=== PATIENT | female | born 1945 | race Caucasian/White ===

== ENCOUNTER 2020-06-07 09:00 | Emergency (ER) | payer BC, OTHER ==
[2020-06-07 09:58] LABS: Absolute Lymphocytes (CBC) 1.4 K/uL (0.7-4.9); Basophils % 0.8 % (0-1.3); Hematocrit 34.1 % (36.0-45.0); Lymphocytes % 26.7 % (15.3-44.8); MPV 9.2 fL (7.6-11.3); RBC Red Blood Cell Count 3.65 M/uL (3.86-4.86)
[2020-06-07 10:20] LABS: ALT/SGPT 8 U/L (12-78); AST/SGOT 14 U/L (15-37); Albumin 3.1 g/dL (3.4-5.0); Alkaline Phosphatase 99 U/L (45-117); BUN Blood Urea Nitrogen 21 mg/dL (7-18); Bicarbonate 31 mmol/L (21-32); Bilirubin Total 0.5 mg/dL (0.2-1.0); Glucose Level 85 mg/dL (74-106); Potassium 3.8 mmol/L (3.5-5.1); Protein, Total 8.1 g/dL (6.4-8.2); Sodium Level 141 mmol/L (136-145); Troponin (Emerg Dept Use Only) < 0.02 ng/mL (0.0-0.045)
[2020-06-07 10:56] LABS: Urine Amorphous Sediment 1+ /HPF (NONE SEEN); Urine Bacteria <20 /HPF (<20); Urine Culture Reflex Order REFLEXED; Urine RBC <5 /HPF (NONE SEEN)
[2020-06-07 11:00] LABS: Urine Blood 1+ (NEG); Urine Glucose NEGATIVE (NEG); Urine Protein NEGATIVE (NEG)
--- NOTE | 2020-06-07 11:23 | ER ---
Nurse's Notes [facility] Name: Staci Cote Age: 75 yrs Sex: Female : 1945 Arrival Date: 06/07/2020 Time: 09:02 Bed 20 Private MD: Diagnosis: Confusion, resolved. ;Urinary frequency Presentation: 06/07 09:03 Chief complaint: EMS states: daughter called EMS for confusion that was there yesterday em but today pt is A\T\O 4, pt reports blood in urine that has resolved, pt denies pain. Coronavirus screen: Client denies travel out of the [place] in the last 14 days. Ebola Screen: Patient negative for fever greater than or equal to 101.5 degrees Fahrenheit, and additional compatible Ebola Virus Disease symptoms Patient denies exposure to infectious person. Patient denies travel to an Ebola-affected area in the 21 days before illness onset. No symptoms or risks identified at this time. Initial Sepsis Screen: Does the patient meet any 2 criteria? No. Patient's initial sepsis screen is negative. Does the patient have a suspected source of infection? No. Patient's initial sepsis screen is negative. Risk Assessment: Do you want to hurt yourself or someone else? Patient reports no desire to harm self or others. Onset of symptoms was June 07, 2020. 09:03 Method Of Arrival: EMS: [facility] em 09:03 Acuity: JESSI 3 em Historical: - Allergies: 09:05 No Known Allergies; em - PMHx: 09:05 Hypertension; Hyperlipidemia; em - Immunization history:: Adult Immunizations up to date. - Social history:: Smoking status: Patient denies any tobacco usage or history of. Screenin:06 Abuse screen: Denies threats or abuse. Nutritional screening: No deficits noted. em Tuberculosis screening: No symptoms or risk factors identified. Fall Risk None identified. Assessment: 09:03 General: Appears in no apparent distress. comfortable, Behavior is calm, cooperative, em appropriate for age, Denies fever. Pain: Denies pain. Neuro: Level of Consciousness is awake, alert, obeys commands, Oriented to person, place, time, situation, Appropriate for age. Cardiovascular: Capillary refill < 3 seconds Patient's skin is warm and dry. Respiratory: Airway is patent Respiratory effort is even, unlabored. GI: Abdomen is obese. : Reports hematuria for one day then clearing up. Derm: Skin is intact, is healthy with good turgor, Skin is pink, warm \T\ dry. Musculoskeletal: Capillary refill < 3 seconds, Range of motion: intact in all extremities. 10:00 Reassessment: Patient appears in no apparent distress at this time. Patient and/or em family updated on plan of care and expected duration. Pain level reassessed. Patient is alert, oriented x 3, equal unlabored respirations, skin warm/dry/pink. 11:00 Reassessment: Patient appears in no apparent distress at this time. Patient and/or em family updated on plan of care and expected duration. Pain level reassessed. Patient is alert, oriented x 3, equal unlabored respirations, skin warm/dry/pink. 11:31 Reassessment: Dr. Saldana at bedside. em 11:33 Reassessment: pending completion of CXR, will be discharged afterwards. em 12:05 Reassessment: COVID-19 sent to outside lab. sv Vital Signs: 09:03 BP 174 / 75; Pulse 61; Resp 18; Temp 97.7(O); Pulse Ox 97% on R/A; Weight 136.08 kg em (R); Height 5 ft. 4 in. (162.56 cm); Pain 0/10; 10:00 BP 165 / 74; Pulse 57; Resp 18; Pulse Ox 97% on R/A; em 11:30 BP 163 / 86; Pulse 55; Resp 16; Pulse Ox 96% on R/A; em 13:00 BP 145 / 92; Pulse 70; Resp 18; Pulse Ox 99% on R/A; em 09:03 Body Mass Index 51.49 (136.08 kg, 162.56 cm) em ED Course: 09:02 Patient arrived in ED. em 09:03 Lencho Saldana MD is Attending Physician. ps1 09:05 Triage completed. em 09:05 Arm band placed on. em 09:06 Patient has correct armband on for positive identification. Placed in gown. Bed in low em position. Pulse ox on. NIBP on. 09:11 Morgan Richards RN is Primary Nurse. em 09:35 Speci-cath kit inserted, using sterile technique, 16 Fr., specimen obtained. inserted em by SHEILA Alicia returned clear yellow urine. Patient tolerated well. 09:52 Initial lab(s) drawn, by me, sent to lab. Inserted saline lock: 20 gauge in right em antecubital area, using aseptic technique. Blood collected. 12:11 CXR XRAY In Process Unspecified. EDMS 13:35 No provider procedures requiring assistance completed. IV discontinued, intact, sv bleeding controlled, No redness/swelling at site. Pressure dressing applied. Administered Medications: No medications were administered Outcome: 11:22 Discharge ordered by . ps1 13:36 Discharged to home via wheelchair, with family. sv 13:36 Condition: stable 13:36 Discharge instructions given to patient, Instructed on discharge instructions, follow up and referral plans. medication usage, Demonstrated understanding of instructions, follow-up care, medications, Prescriptions given X 1. 13:36 Patient left the ED. sv Addendum: 06/10/2020 08:25 Addendum: Culture Results: Positive urine culture. No further action required. Bacteria h b sensitive to prescribed antibiotic. 16:34 Addendum: COVID-19 Result: Negative result given to RN to notify pt. Notified pt of h b negative COVID 19 swab results. Pt advised that even with a negative test result they should remain in isolation until symptom free for 3 days without medication. Pt also advised to return to the ED for worsening symptoms. Signatures: Dispatcher [employer] Suma Lviingston RN RN sv Munoz, Edgar, RN RN em Baxter, Heather, RN RN hb Singer, Phillip, MD MD ps1
--- NOTE | 2020-06-07 11:23 | EDPHYS ---
Physician Documentation [facility] Name: Staci Cote Age: 75 yrs Sex: Female : 1945 Arrival Date: 06/07/2020 Time: 09:02 Bed 20 Private MD: ED Physician Lencho Saldana HPI: 06/07 09:04 This 75 yrs old Female presents to ER via EMS with complaints of Urinary ps1 Problem. 09:04 Patient had symptoms of cloudy urine. EMS states that she was reportedly confused ps1 yesterday. Alert and oriented today. No symptoms at this time. No new complaints. . Historical: - Allergies: 09:05 No Known Allergies; em - PMHx: 09:05 Hypertension; Hyperlipidemia; em - Immunization history:: Adult Immunizations up to date. - Social history:: Smoking status: Patient denies any tobacco usage or history of. ROS: 09:04 Constitutional: Negative for fever, chills, and weight loss, Eyes: Negative for injury, ps1 pain, redness, and discharge, Cardiovascular: Negative for chest pain, palpitations, and edema, Respiratory: Negative for shortness of breath, cough, wheezing, and pleuritic chest pain, Abdomen/GI: Negative for abdominal pain, nausea, vomiting, diarrhea, and constipation, MS/Extremity: Negative for injury and deformity. 09:04 : Positive for urinary symptoms. Exam: 09:04 Constitutional: This is a well developed, well nourished patient who is awake, alert, ps1 and in no acute distress. Head/Face: Normocephalic, atraumatic. Eyes: Pupils equal round and reactive to light, extra-ocular motions intact. Lids and lashes normal. Conjunctiva and sclera are non-icteric and not injected. Chest/axilla: Normal chest wall appearance and motion. Nontender with no deformity. No lesions are appreciated. Cardiovascular: Regular rate and rhythm. No gallops, murmurs, or rubs. Normal PMI, no JVD. No pulse deficits. Respiratory: Lungs have equal breath sounds bilaterally, clear to auscultation and percussion. No rales, rhonchi or wheezes noted. No increased work of breathing, no retractions or nasal flaring. Abdomen/GI: Soft, non-tender, with normal bowel sounds. No distension or tympany. No guarding or rebound. No evidence of tenderness throughout. Skin: Warm, dry with normal turgor. Normal color with no rashes, no lesions, and no evidence of cellulitis. MS/ Extremity: Pulses equal, no cyanosis. Neurovascular intact. Full, normal range of motion. Neuro: Awake and alert, GCS 15, oriented to person, place, time, and situation. Cranial nerves II-XII grossly intact. Sensory grossly intact. Vital Signs: 09:03 BP 174 / 75; Pulse 61; Resp 18; Temp 97.7(O); Pulse Ox 97% on R/A; Weight 136.08 kg em (R); Height 5 ft. 4 in. (162.56 cm); Pain 0/10; 10:00 BP 165 / 74; Pulse 57; Resp 18; Pulse Ox 97% on R/A; em 11:30 BP 163 / 86; Pulse 55; Resp 16; Pulse Ox 96% on R/A; em 13:00 BP 145 / 92; Pulse 70; Resp 18; Pulse Ox 99% on R/A; em 09:03 Body Mass Index 51.49 (136.08 kg, 162.56 cm) em MDM: 09:46 Patient medically screened. ps1 11:22 Differential Diagnosis altered mental status, sepsis, flu, COVID, UTI, Metabolic ps1 derangements, Dehydration, and others. Data reviewed: vital signs, nurses notes, lab test result(s), and as a result, I will discharge patient. Counseling: I had a detailed discussion with the patient and/or guardian regarding: the historical points, exam findings, and any diagnostic results supporting the discharge/admit diagnosis, lab results, the need for outpatient follow up, to return to the emergency department if symptoms worsen or persist or if there are any questions or concerns that arise at home. 06/07 09:10 Order name: CBC with Diff; Complete Time: 10:02 ps1 06/07 09:10 Order name: CMP; Complete Time: 10:24 ps1 06/07 09:10 Order name: Troponin (emerg Dept Use Only); Complete Time: 10:24 ps1 06/07 09:45 Order name: Urine Microscopic Only; Complete Time: 10:58 em 06/07 09:47 Order name: Urine Dipstick--Ancillary (enter results); Complete Time: 11:21 eb 06/07 10:25 Order name: COVID-19 ps1 06/07 09:10 Order name: Urine Dipstick-Ancillary (obtain specimen); Complete Time: 09:39 ps1 06/07 09:10 Order name: EKG - Nurse/Tech; Complete Time: 09:39 ps1 06/07 10:58 Order name: Urine Culture EDHI 06/07 11:32 Order name: CXR XRAY; Complete Time: 13:11 ps1 Administered Medications: No medications were administered Disposition: 06/07/20 11:22 Discharged to Home. Impression: Confusion, resolved. , Urinary frequency. - Condition is Stable. - Discharge Instructions: Confusion. - Prescriptions for Levaquin 500 mg Oral Tablet - take 1 tablet by ORAL route once daily for 7 days; 7 tablet. - Medication Reconciliation Form, Thank You Letter, Antibiotic Education, Prescription Opioid Use form. - Follow up: Private Physician; When: 1 - 2 days; Reason: Further diagnostic work-up, Continuance of care. Follow up: Emergency Department; When: As needed; Reason: Fever > 102 F, Worsening of condition. - Problem is new. - Symptoms have improved. Signatures: Dispatcher [employer] Suma Alvarado RN RN Morgan Fox RN RN Lencho Ospina MD MD ps1 Corrections: (The following items were deleted from the chart) 13:36 11:22 06/07/2020 11:22 Discharged to Home. Impression: Confusion, resolved. ; Urinary sv frequency. Condition is Stable. Forms are Medication Reconciliation Form, Thank You Letter, Antibiotic Education, Prescription Opioid Use. Follow up: Private Physician; When: 1 - 2 days; Reason: Further diagnostic work-up, Continuance of care. Follow up: Emergency Department; When: As needed; Reason: Fever > 102 F, Worsening of condition. Problem is new. Symptoms have improved. ps1
--- NOTE | 2020-06-07 12:56 | RAD REPORT ---
EXAM DESCRIPTION: RAD - Chest Single View - 06/07/2020 12:10 pm CLINICAL HISTORY: confusion, altered mental status, shortness of breath COMPARISON: None TECHNIQUE: AP portable chest image was obtained 06/07/2020 12:10 pm . FINDINGS: Detail is limited by low lung volumes and large body habitus. No peripheral mass or consol idation. Cardiomegaly is present with vascular engorgement. Perihilar interstitial pattern is more pr ominent than peripheral markings. Right hemidiaphragm elevation present. No measurable pleural effusi on and no pneumothorax. No acute bony abnormality seen. No acute aortic findings suspected. IMPRESSION: Limited portable study shows evidence for mild failure/volume overload. A focal pneumonia or infiltrate is not identifiable.
[2020-06-07 13:46] VITALS: TEMP 97.7
[2020-06-07 13:49] VITALS: BP 163/86; O2SAT 96
--- NOTE | 2020-06-08 07:43 | EKG ---
Test Date: 2020-06-07 Test Time: 09:20:40 [employer]: HOLLY MEASUREMENT RESULTS: Intervals: Rate: 69 ND: 158 QRSD: 86 QT: 430 QTc: 460 [place]: P: 69 ND: 158 QRS: 34 T: 47 INTERPRETIVE STATEMENTS: Sinus rhythm with marked sinus arrhythmia Otherwise normal ECG Compared to ECG 09/15/2003 13:36:00 No significant changes Electronically Signed On 06-08-20 07:42:53 CDT by Marcial Medina
== END 2020-06-07 13:36 | disposition home or self-care (01) ==
LOC: ER 09:00
DX: R35.0 Frequency of micturition (principal); I10 Essential (primary) hypertension
CPT/HCPCS: 93005; 87088; 85025; 87086; 36415; 87077; 87186; 84484; 80053; 71045; 99284; U0002; 81003; 81015

== ENCOUNTER 2021-04-18 12:21 | Inpatient (IN) | payer OTHER ==
--- OUTSIDE RECORDS SUMMARY | 2021-04-18 12:23 | XMS REPORT | Continuity of Care Document ---
:1945 Author Organization [facility] t Address [address] [place] [address] Care Team Providers Name Role Phone Unavailable Unavailable Unavailable Problems Condition Condition Condition Status Onset Resolution Last Treating Co mments Source Name Details Category Date Date Treatment Clinician Date Insomnia Insomnia Problem Active 2020-0 [place] [facility] 3-08 Family 00:00: Practic 00 e Neuropathy Neuropathy Problem Active 2020-0 [facility] 3-08 Family 00:00: Practic 00 e Hyperchole Hyperchole Problem Active 2020-0 [facility] sterolemia sterolemia 3-05 Fa [facility] 00:00: Practic 00 e Major Major Problem Active 2020-0 [facility] depressive Depressive 3-05 Fa [facility] disorder Disorder 00:00: Practi c 00 e Anxiety Anxiety Problem Active 2020-0 [place] disorder Disorder 3-05 Family 00:00: Practic 00 e Essential Essential Problem Active 2020-0 Guillermo raisa hypertensi Hypertensi 3-05 Fa [facility] on on 00:00: Practic 00 e Gastroesop Gastroesop Problem Active 2020-0 [facility] hageal hageal 3-05 Family reflux Reflux 00:00: Practic disease Disease 00 e Arthritis Arthritis Problem Active 2020-0 Guillermo raisa 3-05 Family 00:00: Practic 00 e Allergies, Adverse Reactions, Alerts This patient has no known allergies or adverse reactions. Social History Smoking Status Start Date Stop Date Source Never Smoker Richie Family P norma Medications Ordered Filled Start Stop Current Ordering Indication Dosage Frequency Signature Comments Components Source Medication Medication Date Date Medication? Clinician (SIG) Name Name atenolol atenolol No 1 Q1D atenolol Guillermo raisa 100 mg 100 mg 100 mg Family tablet Take tablet Take tablet Practic 1 tablet 1 tablet Take 1 e every day every day tablet by oral by oral every day route. route. by oral route. clonazepam clonazepam No 1 TID clonazepam [facility] 0.5 mg 0.5 mg 0.5 mg Family tablet Take tablet Take tablet Practic 1 tablet 3 1 tablet 3 Take 1 e times a day times a day tablet 3 by oral by oral times a route. route. day by oral route. diclofenac diclofenac No 1 BID diclofenac [facility] 75 75 75 Family mg-misopros mg-misopros mg-misopro Practic nenita 200 mcg nenita 200 mcg stol 200 e tablet,imme tablet,imme mcg diate,delay diate,delay tablet,imm ed release ed release ediate,del Take 1 Take 1 ayed tablet tablet release twice a day twice a day Take 1 by oral by oral tablet route. route. twice a day by oral route. famotidine famotidine No 1 BID famotidine [facility] 20 mg 20 mg 20 mg Family tablet Take tablet Take tablet Practic 1 tablet 1 tablet Take 1 e twice a day twice a day tablet by oral by oral twice a route. route. day by oral route. fluoxetine fluoxetine No 1capsul Q1D fluoxetine [facility] 20 mg 20 mg e(s) 20 mg Family capsule capsule capsule Practi c Take 1 Take 1 Take 1 e capsule capsule capsule every day every day every day by oral by oral by oral route. route. route. gabapentin gabapentin No 1capsul TID gabapentin [facility] 300 mg 300 mg e(s) 300 mg Family capsule capsule capsule Practi c Take 1 Take 1 Take 1 e capsule 3 capsule 3 capsule 3 times a day times a day times a by oral by oral day by route. route. oral route. hydrochloro hydrochloro No 1 Q1D hydrochlor [facility] thiazide 25 thiazide 25 othiazide Family mg tablet mg tablet 25 mg Prac tic Take 1 Take 1 tablet e tablet tablet Take 1 every day every day tablet by oral by oral every day route. route. by oral route. simvastatin simvastatin No 1 Q1D simvastati [facility] 20 mg 20 mg n 20 mg Family tablet Take tablet Take tablet Practic 1 tablet 1 tablet Take 1 e every day every day tablet by oral by oral every day route. route. by oral route. tramadol 50 tramadol 50 No 1 Q6H tramadol [facility] mg tablet mg tablet 50 mg Fami ly Take 1 Take 1 tablet Practic tablet tablet Take 1 e every 6 every 6 tablet hours by hours by every 6 oral route. oral route. hours by oral route. zolpidem 10 zolpidem 10 No 1 Q1D zolpidem [facility] mg tablet mg tablet 10 mg Fami ly Take 1 Take 1 tablet Practic tablet tablet Take 1 e every day every day tablet by oral by oral every day route. route. by oral route. Vital Signs Vital Name Observation Time Observation Value Comments Source BP Diastolic 2019-10-31 00:00:00 75 mm[Hg] [facility] Height 2019-10-31 00:00:00 64 [in_i] [facility] BMI (Body Mass 2019-10-31 00:00:00 47.4 kg/m2 [facility] Index) Practice BP Systolic 2019-10-31 00:00:00 115 mm[Hg] [facility] Body Weight 2019-10-31 00:00:00 276 [lb_av] [facility] Procedures This patient has no known procedures. Plan of Care Planned Activity Planned Date Details Comments Source Instructions [facility] Encounters Start End Encounter Admission Attending Care Care Encounter Source Date/Time Date/Time Type Type Clinicians Facility Department ID 2019-10-31 2019-10-31 Manisha [facility] [place] - [id number] [facility] 00:00:00 00:00:00 Christina [facility] yuval nassar ARTISTS' MODEL: Medical - Practi c [email or web address] [facility], [address] [address], [place] [address] , Ph. Results This patient has no known results.
[2021-04-18 13:07] LABS: Absolute Lymphocytes (CBC) 0.5 K/uL (0.7-4.9); Basophils % 0.5 % (0-1.3); Hematocrit 30.2 % (36.0-45.0); Lymphocytes % 4.2 % (15.3-44.8); MPV 9.3 fL (7.6-11.3); RBC Red Blood Cell Count 3.24 M/uL (3.86-4.86)
[2021-04-18 13:09] LABS: Arterial Blood Carboxyhemoglob 1.6 % (0-1.5); Blood Gas Oxyhemoglobin 96.8 % (94-97); Blood O2 Saturation 99.4 % (92-98.5)
[2021-04-18] MEDS ORDERED: NA CHLORIDE 0.9% 1,000 ML ONE ×3 (13:24→22:14)
[2021-04-18 13:32] LABS: ALT/SGPT 20 U/L (12-78); AST/SGOT 52 U/L (15-37); Albumin 2.6 g/dL (3.4-5.0); Alkaline Phosphatase 265 U/L (45-117); Amylase 17 U/L (25-115); BUN Blood Urea Nitrogen 37 mg/dL (7-18); Bicarbonate 22 mmol/L (21-32); Bilirubin Direct 0.5 mg/dL (0-0.2); Creatine Phosphokinase 47 U/L (26-192); Glucose Level 91 mg/dL (74-106); Lipase 57 U/L (73-393); Potassium 3.9 mmol/L (3.5-5.1); Sodium Level 136 mmol/L (136-145); Troponin (Emerg Dept Use Only) < 0.02 ng/mL (0.0-0.045)
[2021-04-18 13:47] LABS: CKMB Creatine Kinase MB < 1.0 ng/mL (1.0-3.6)
--- NOTE | 2021-04-18 13:48 | RAD REPORT ---
EXAM DESCRIPTION: CT - Head C Spine Cap Wo Con - 04/18/2021 1:28 pm CLINICAL HISTORY: fall, head, neck, chest and abdomen pain COMPARISON: No comparisonsChest Single View dated 04/18/2021 TECHNIQUE: Axial [address] head images were obtained. Axial [address] cervical spine images were obtain ed with sagittal and coronal reconstruction images reviewed. Axial 5 mm images of the chest, abdomen and pelvis were obtained. All CT scans are performed using dose optimization technique as appropriate and may include automated exposure control or mA/KV adjustment according to patient size. FINDINGS: No intracranial hemorrhage, mass or edema. No midline shift or abnormal fluid collection. Patient has a predominantly bifrontal moderate volume loss pattern. Ventricles are in proportion to a ny volume loss. Chronic ischemic changes are minimal. Mastoid air cells and paranasal sinuses are tara ar. No skull fracture. A 15 millimeter area of focal mucosal thickening or polyp formation in the ri ght nasal passage. No expansile change. Cervical bodies are normal in height. Mild anterior subluxation of C4 on C5 secondary to facet degene rative change. C5-6 and C6-7 disc levels show disc space narrowing with uncovertebral joint hypertrop hy, facet hypertrophy and bilateral foraminal stenoses. No fracture or acute bone finding. No prevert ebral soft tissue thickening or paraspinal mass.Central canal detail is inherently limited on CT imag ing. CT chest shows no pneumothorax, pulmonary contusion or pleural fluid collection. Patient does have ex tensive alveolar ground-glass opacities throughout much of each lung field. No one area of dense cons olidation, mass or cavitation. No mediastinal hematoma and the aorta and pulmonary arteries are unrem arkable. No chest will mass or abnormal axillary finding. No displaced rib fracture or other signific ant bony finding. CT abdomen and pelvis show no injury to solid abdominal viscera. Cholelithiasis is present. No wall t hickening or edema. No biliary tree dilatation. No bowel injury or significant finding. No free air, free fluid or abnormal stranding. No hernia, mass or bulky lymphadenopathy. No urinary bladder abnor mality. No significant bony finding. IMPRESSION: Ground-glass opacities scattered throughout both lung davila in a pattern commonly seen with a moderate severity COVID-19 pneumonia. Correlation is needed with testing findings and clinical presentation. Non COVID viral pneumonia and organizing pneumonia can have a similar appearance. Bacterial pneumonia is possible though not as co mmon in this presentation. Predominantly bifrontal cerebral atrophy pattern with no acute intracranial finding. Cervical spine degenerative change with no acute finding. No traumatic injury to the chest. No acute or emergent abdomen or pelvis finding. Patient does have cholelithiasis.
--- NOTE | 2021-04-18 13:51 | RAD REPORT ---
EXAM DESCRIPTION: RAD - Chest Single View - 04/18/2021 1:11 pm CLINICAL HISTORY: sepsis COMPARISON: May 2020 TECHNIQUE: AP portable chest image was obtained 04/18/2021 1:11 pm . FINDINGS: Lung volumes are low. Bilateral airspace opacification is present with relative sparing of the left apex. Body habitus exaggerates the lung parenchymal opacification. In the acute clinical environment, bilateral COVID 19 would be the primary consideration. Non COVID v iral pneumonia, organizing pneumonia and less common bacterial pneumonia presentation also possible i n a patient with sepsis. Pattern is not typical for failure or volume overload. Prominent cardiac silhouette. Fullness of the mediastinum is present. No measurable pleural effusion and no pneumothorax. No acute bony abnormality seen. No acute aortic findings suspected. IMPRESSION: Suspected moderate severity bilateral COVID-19 pneumonia. Lung pattern can also be seen with non COVID viral pneumonia, organizing pneumonia and uncommon prese ntation of bacterial pneumonia.
[2021-04-18 14:08] LABS: Blood Morphology Comment NOTED (NOT SEEN); Platelet Estimate ADEQ; White Blood Cell Scan OK (OK)
[2021-04-18 14:09] LABS: Anisocytosis 1+; Poikilocytosis 1+
--- NOTE | 2021-04-18 16:18 | EDPHYS ---
Physician Documentation [facility] Name: Staci Cote Age: 76 yrs Sex: Female : 1945 Arrival Date: 04/18/2021 Time: 12:24 Bed 16 Private MD: ED Physician Anthony Zavala HPI: 04/18 12:45 This 76 yrs old Female presents to ER via EMS with complaints of Fall. cp 12:45 Details of fall: The patient fell from an upright position, while standing. cp 12:45 Onset: The symptoms/episode began/occurred this morning. cp 12:45 Patient reports she fell while attempting to get up out of bed and was unable to get up cp from floor. EMS reports patient with hypotension upon arrival. Historical: - Allergies: 12:42 No Known Allergies; zb - Home Meds: 12:42 Baclofen Oral [Active]; Zolpidem Tartrate Oral [Active]; Clonazepam Oral [Active]; zb Tramadol Oral [Active]; Singulair Oral [Active]; amlodipine oral [Active]; Atenolol Oral [Active]; Prozac Oral [Active]; Crestor oral [Active]; - PMHx: 12:42 Hyperlipidemia; Hypertension; zb - Immunization history:: Adult Immunizations up to date, Client reports receiving the 2nd dose of the Covid vaccine, Date received: 2020. - Social history:: Smoking status: unknown. ROS: 12:55 Constitutional: Negative for fever, poor PO intake. cp 12:55 Eyes: Negative for injury, pain, redness, and discharge. cp 12:55 Cardiovascular: Negative for chest pain, edema. 12:55 Respiratory: Positive for shortness of breath, Negative for wheezing. 12:55 Abdomen/GI: Negative for abdominal pain, vomiting, diarrhea, constipation. 12:55 MS/extremity: Negative for injury or acute deformity. 12:55 Skin: Negative for cellulitis, rash. 12:55 Neuro: Positive for weakness, Negative for altered mental status, headache. 12:55 All other systems are negative. Exam: 13:00 Constitutional: The patient appears alert, awake, non-diaphoretic, non-toxic, well cp developed, well nourished, obese, in obvious distress, mildly distressed. 13:00 Head/Face: Normocephalic, atraumatic. cp 13:00 Eyes: Periorbital structures: appear normal, Pupils: equal, round, and reactive to light and accomodation, Conjunctiva: normal, no exudate, no injection, Sclera: no appreciated abnormality, Lids and lashes: appear normal, bilaterally. 13:00 ENT: External ear(s): are unremarkable, Nose: is normal, Mouth: Lips: dry, Oral mucosa: moist, Posterior pharynx: Airway: no evidence of obstruction, patent. 13:00 Neck: C-spine: vertebral tenderness, is not appreciated, crepitus, is not appreciated. 13:00 Chest/axilla: Inspection: normal, Palpation: is normal, no crepitus, no tenderness. 13:00 Cardiovascular: Rate: bradycardic, Rhythm: regular, Edema: is not appreciated, JVD: is not appreciated. 13:00 Respiratory: mild respiratory distress is noted, Respirations: shallow respirations, that is mild, Breath sounds: decreased breath sounds, that are mild, throughout, wheezing: is not appreciated. 13:00 Abdomen/GI: Inspection: obese Bowel sounds: active, all quadrants, Palpation: abdomen is soft and non-tender, in all quadrants. 13:00 Back: pain, is absent. 13:00 Skin: cellulitis, is not appreciated, no rash present. 13:00 Neuro: Orientation: to person, situation, Mentation: able to follow commands, slow to respond. 17:50 ECG was reviewed by the Attending Physician. cp Vital Signs: 12:32 BP 97 / 55; Pulse 53; Resp 23; Temp 96.8(TE); Pulse Ox 100% on 100% Nebulizer Mask; zb Height 5 ft. 4 in. (162.56 cm); Pain 0/10; 12:48 Weight 117.93 kg; zb 13:47 BP 116 / 79; Pulse 46; Resp 20; Pulse Ox 100% on BiPAP; zb 14:28 BP 104 / 45; Pulse 50; Resp 20; Pulse Ox 100% on BiPAP; zb 15:09 BP 112 / 61; Pulse 50; Resp 20; Pulse Ox 100% on BiPAP; zb 16:15 BP 110 / 79; Pulse 54; Resp 18; Pulse Ox 99% on BiPAP; zb 17:02 BP 112 / 68; Pulse 48; Resp 22; Pulse Ox 100% on BiPAP; zb 18:12 BP 94 / 51; Pulse 47; Resp 22; Pulse Ox 100% on BiPAP; zb 19:06 BP 100 / 62; Pulse 46; Resp 19; Pulse Ox 100% on BiPAP; zb 20:00 BP 100 / 49; Pulse 46; Resp 22; Pulse Ox 100% on BiPAP; zb 21:00 BP 110 / 98; Pulse 58; Resp 18; Pulse Ox 100% on BiPAP; zb 22:15 BP 147 / 99; Pulse 54; Resp 17; Pulse Ox 100% on BiPAP; zb 23:00 BP 143 / 67; Pulse 56; Resp 20; Pulse Ox 100% on BiPAP; zb 12:48 Body Mass Index 44.63 (117.93 kg, 162.56 cm) zb MDM: 12:34 Patient medically screened. [facility] 13:00 Differential diagnosis: fracture, multiple trauma, sepsis, pneumonia, UTI. 15:00 Data reviewed: vital signs, nurses notes, lab test result(s), radiologic studies, CT cp scan, plain films. 15:00 Test interpretation: by ED physician or midlevel provider: plain radiologic studies. 04/18 12:38 Order name: Amylase, Serum [facility] 04/18 12:38 Order name: Basic Metabolic Panel [facility] 04/18 12:38 Order name: Blood Culture Adult (2) [facility] 04/18 12:38 Order name: CBC with Diff [facility] 04/18 12:38 Order name: CPK; Complete Time: 14:51 [facility] 04/18 12:38 Order name: Ckmb; Complete Time: 14:51 [facility] 04/18 12:38 Order name: LFT's; Complete Time: 14:51 [facility] 04/18 14:51 Interpretation: Normal except: AST 52; ALK 265; BILID 0.5; ALB 2.6; GLOB 5.4; A/G 0.5. 04/18 12:38 Order name: Lactate; Complete Time: 17:19 [facility] 04/18 12:38 Order name: Lipase; Complete Time: 14:51 [facility] 04/18 12:38 Order name: Procalcitonin; Complete Time: 17:19 [facility] 04/18 12:38 Order name: Protime (+inr); Complete Time: 17:56 [facility] 04/18 17:56 Interpretation: Abnormal: PT 14.8. cp 04/18 12:38 Order name: Ptt, Activated; Complete Time: 17:56 abhijit 04/18 12:38 Order name: Troponin (emerg Dept Use Only); Complete Time: 14:51 [facility] 04/18 12:38 Order name: Urine Microscopic Only [facility] 04/18 12:39 Order name: Amylase; Complete Time: 14:51 [facility] 04/18 12:39 Order name: Basic Metabolic Panel; Complete Time: 14:51 [facility] 04/18 14:52 Interpretation: Normal except: BUN 37; CRE 2.43; GFR 19; CA 8.2. 04/18 12:39 Order name: Blood Culture; Complete Time: 16:09 [facility] 04/18 12:39 Order name: CBC with Automated Diff; Complete Time: 14:51 [facility] 04/18 14:52 Interpretation: Normal except: WBC 12.40; RBC 3.24; HGB 9.7; HCT 30.2; RDW 15.3; DIONNE% cp 85.2; LYM% 4.2; NEUT A 10.6; LYMA 0.5. 04/18 12:41 Order name: COVID-19 : Document "Date of Symptom Onset" if Symptomatic. 04/18 12:43 Order name: Influenza Screen (a \\T\\ B) 04/18 12:43 Order name: Influenza Screen (A ; Complete Time: 14:51 [facility] 04/18 12:44 Order name: ABG; Complete Time: 15:45 04/18 13:12 Order name: CBC Smear Scan; Complete Time: 14:51 [facility] 04/18 15:12 Order name: SARS-COV-2 RT PCR; Complete Time: 15:45 [facility] 04/18 16:29 Order name: C-Reactive Protein; Complete Time: 17:34 [facility] 04/18 16:29 Order name: Ferritin; Complete Time: 17:34 [facility] 04/18 17:11 Order name: Comprehensive Metabolic Panel [facility] 04/18 17:11 Order name: Comprehensive Metabolic Panel; Complete Time: 16:09 [facility] 04/18 17:12 Order name: CBC with Automated Diff [facility] 04/18 17:12 Order name: CBC with Automated Diff; Complete Time: 16:09 [facility] 04/18 17:12 Order name: Lipid Profile [facility] 04/18 17:12 Order name: Lipid Profile; Complete Time: 16:09 EDMS 04/18 17:16 Order name: Lactate; Complete Time: 16:09 ED[facility] 04/18 17:27 Order name: D-Dimer; Complete Time: 17:56 ED[facility] 04/18 17:27 Order name: Urine Dipstick-Ancillary; Complete Time: 17:34 EDMS 04/18 18:51 Order name: ABG Arterial Blood Gas; Complete Time: 16:09 EDMS 04/18 18:53 Order name: ABG Arterial Blood Gas; Complete Time: 16:09 EDMS 04/18 22:07 Order name: ABG Arterial Blood Gas; Complete Time: 16: EDMS 04/19 00:57 Order name: Basic Metabolic Panel; Complete Time: 16: EDMS 04/19 03:26 Order name: C-Reactive Protein; Complete Time: 16:09 EDMS 04/19 03:26 Order name: Ferritin; Complete Time: 16:09 EDMS 04/19 03:37 Order name: Fibrinogen; Complete Time: 16:09 EDMS 04/19 03:37 Order name: D-Dimer; Complete Time: 16: EDMS 04/19 04:31 Order name: Procalcitonin; Complete Time: 16:09 EDMS 04/19 06:22 Order name: CREATININE WHOLE BLOOD; Complete Time: 16: EDMS 04/19 17:19 Order name: UR SODIUM; Complete Time: 16: EDMS 04/19 17:19 Order name: UR PROTEIN; Complete Time: 16: EDMS 04/19 17:34 Order name: UR CREAT; Complete Time: 16: EDMS 04/20 05:16 Order name: CBC with Automated Diff; Complete Time: 16: EDMS 04/20 05:31 Order name: Lactate; Complete Time: 16:09 EDMS 04/20 05:34 Order name: Comprehensive Metabolic Panel; Complete Time: 16: EDMS 04/20 05:34 Order name: Phosphorus; Complete Time: 16: EDMS 04/20 05:34 Order name: Magnesium; Complete Time: 16:09 EDMS 04/20 11:13 Order name: Cortisol; Complete Time: 16: EDMS 04/20 12:43 Order name: Urinalysis; Complete Time: 16: EDMS 04/20 12:48 Order name: Ur Protein; Complete Time: 16:09 [facility] 04/20 13:01 Order name: Urine Microscopic Only; Complete Time: 16:09 [facility] 04/20 17:38 Order name: COVID-19 : Document "Date of Symptom Onset" if Symptomatic. ss 04/20 17:53 Order name: CORONAVIRUS [facility] 04/18 12:38 Order name: Chest Single View XRAY; Complete Time: 14:51 [facility] 04/18 12:38 Order name: Accucheck; Complete Time: 12:40 [facility] 04/18 12:38 Order name: Cardiac monitoring; Complete Time: 12:40 [facility] 04/18 12:38 Order name: EKG - Nurse/Tech; Complete Time: 12:40 [facility] 04/18 12:38 Order name: IV Saline Lock - Large Bore; Complete Time: 13:47 [facility] 04/18 12:38 Order name: Labs collected and sent; Complete Time: 13:47 [facility] 04/18 12:38 Order name: O2 Per Protocol; Complete Time: 12:40 [facility] 04/18 12:38 Order name: O2 Sat Monitoring; Complete Time: 13:47 [facility] 04/18 13:10 Order name: Head C Spine Cap Wo Con; Complete Time: 14:51 [facility] 04/18 14:54 Order name: Cath; Complete Time: 16:56 cp 04/18 17:12 Order name: Heart Healthy [facility] 04/18 17:12 Order name: Chest Pa And Lat (2 Views) [facility] 04/18 17:12 Order name: Chest Pa And Lat (2 Views) [facility] 04/19 07:02 Order name: US; Complete Time: 16:09 [facility] 04/19 07:03 Order name: US; Complete Time: 16:09 [facility] 04/19 07:16 Order name: RAD; Complete Time: 16:09 [facility] 04/20 19:07 Order name: SARS-COV-2 RT PCR; Complete Time: 16:09 [facility] 04/20 22:26 Order name: Vancomycin Level Trough; Complete Time: 16:09 EDWV EC:50 Rate is 59 beats/min. Rhythm is regular. TX interval is normal. QRS interval is normal. cp QT interval is prolonged at 536 msec. T waves are Inverted in leads III, aVR. Interpreted by me. Reviewed by me. Administered Medications: 12:42 CANCELLED (Physician Discretion): NS 0.9% (30 ml/kg) 30 ml/kg IV at bolus once; Sepsis cp Protocol 13:09 Drug: NS 0.9% 1000 ml Route: IV; Rate: 1 bolus; Site: right wrist; zb 14:00 Follow up: Response: No adverse reaction; IV Status: Completed infusion; IV Intake: zb 1000ml 17:00 Drug: Rocephin (cefTRIAXone) 1 grams Route: IV; Rate: calculated rate; Site: right zb wrist; 18:00 Follow up: Response: No adverse reaction; IV Status: Completed infusion; IV Intake: 10mlzb 17:00 Drug: Zithromax (azithromycin) 500 mg Route: IVPB; Infused Over: 1 hrs; Site: right zb wrist; 18:00 Follow up: Response: No adverse reaction; IV Status: Completed infusion; IV Intake: zb 250ml 17:47 Drug: NS 0.9% 1000 ml Route: IV; Rate: 1 bolus; Site: right wrist; zb 08 00:05 Follow up: Response: No adverse reaction; IV Status: Completed infusion; IV Intake: zb 1000ml 04/18 21:59 Drug: Lovenox (enoxaparin) 40 mg Route: Sub-Q; Site: right lower abdomen; zb 04/19 00:05 Follow up: Response: No adverse reaction zb Disposition Summary: 04/18/21 16:17 Hospitalization Ordered Hospitalization Status: Inpatient Admission cp Provider: Gurinder Noble cp Condition: Fair cp Problem: new cp Symptoms: have improved cp Bed/Room Type: Standard Location: [facility] ER HOLD(04/18/21 22:16) Room Assignment: ERHOLD-(04/18/21 22:16) Diagnosis - Pneumonia due to other specified infectious organisms cp - Acute respiratory failure with hypoxia cp - Other specified sepsis cp - Acute kidney failure, unspecified cp Forms: - Medication Reconciliation Form cp - SBAR form cp Addendum: 04/22/2021 07:49 Co-signature as Attending Physician, Anthony Zavala MD I agree with the assessment and c gipson plan of care. Signatures: Dispatcher [employer] Anthony Aldrich MD MD cha Attema, Lee, AIRPLANE GAS TANK LINER ASSEMBLER-C [employer]PLANE G[employer] TANK LINER ASSEMBLER-Cla1 Anthony Gordon PA PA Matilde Medellin, SHEILA RN Ilene Trinidad RN RN zb Corrections: (The following items were deleted from the chart) 04/18 12:42 12:38 NS 0.9% (30 ml/kg) 30 ml/kg IV at bolus once; Sepsis Protocol ordered. abhijit cp 13:10 12:44 Head C Spine CAP W Con+CT.RAD.BRZ ordered. EDMS EDMS 14:16 12:42 CORONAVIRUS ordered. EDMS EDMS 14:52 14:52 Normal except: BUN 37; CRE 2.43; GFR 19. cp cp 17:15 17:12 Liver (Hepatic) Function ordered. EDMS EDMS 17:27 16:29 D-Dimer ordered. EDMS EDMS 22:16 16:17 Telemetry/MedSurg (Inpatient) cp cg 22:16 16:17 cp cg
--- NOTE | 2021-04-18 16:18 | ER ---
Nurse's Notes [facility] Name: Staci Cote Age: 76 yrs Sex: Female : 1945 Arrival Date: 04/18/2021 Time: 12:24 Bed 16 Private MD: Diagnosis: Pneumonia due to other specified infectious organisms;Acute respiratory failure with hypoxia;Other specified sepsis;Acute kidney failure, unspecified Presentation: 04/18 12:32 Chief complaint: EMS states: called out for a fall. patient was found on the ground at zb her house aox2. blood pressure was in the 80 systolic and patient was sating on 77% on RA. placed on nasal cannula no improvement. Place on Non-breather patients sat increased to 97%. 20 R wrist. patient appears to lethargic. Coronavirus screen: Client presents with at least one sign or symptom that may indicate coronavirus-19. Standard/surgical mask placed on the client. Provider contacted for isolation considerations. Ebola Screen: No symptoms or risks identified at this time. Initial Sepsis Screen: Does the patient meet any 2 criteria? Temp <36.0*C (96.8*F)) or > 38.3*C (100.9*F). Altered Mental Status. Does the patient have a suspected source of infection? Yes:. Risk Assessment: Do you want to hurt yourself or someone else? Patient reports no desire to harm self or others. Onset of symptoms was April 18, 2021. 12:32 Acuity: JESSI 2 zb 12:32 Method Of Arrival: EMS: [facility] zb 12:42 Care prior to arrival: Medication(s) given: Normal saline infusion, 1000 mL, IV zb initiated. 20 GA, in the right wrist. Triage Assessment: 12:49 General: Appears distressed, Behavior is calm, cooperative. Pain: Denies pain. Neuro: zb Level of Consciousness is lethargic, Oriented to person, Hand Bulldozer are weak bilaterally Moves all extremities. Full function Speech. Cardiovascular: Patient's skin is warm and dry. Rhythm is irregular. Respiratory: Airway is patent Respiratory effort is labored, Respiratory pattern is tachypnea Breath sounds are diminished bilaterally. Breath sounds with wheezes bilaterally. the patient has severe shortness of breath. Derm: Skin is fragile, Skin is Skin is pale, Skin temperature is warm. Musculoskeletal:. Historical: - Allergies: 12:42 No Known Allergies; zb - Home Meds: 12:42 Baclofen Oral [Active]; Zolpidem Tartrate Oral [Active]; Clonazepam Oral [Active]; zb Tramadol Oral [Active]; Singulair Oral [Active]; amlodipine oral [Active]; Atenolol Oral [Active]; Prozac Oral [Active]; Crestor oral [Active]; - PMHx: 12:42 Hyperlipidemia; Hypertension; zb - Immunization history:: Adult Immunizations up to date, Client reports receiving the 2nd dose of the Covid vaccine, Date received: 2020. - Social history:: Smoking status: unknown. Screenin:50 Abuse screen: Denies threats or abuse. Denies injuries from another. Nutritional zb screening: No deficits noted. Tuberculosis screening: No symptoms or risk factors identified. Fall Risk Fall in past 12 months (25 points). Secondary diagnosis (15 points) dementia, impaired mobility, IV access (20 points). Ambulatory Aid- None/Bed Rest/Nurse Assist (0 pts). Gait- Normal/Bed Rest/Wheelchair (0 pts) Mental Status- Overestimates/Forgets Limitations (15 pts.). Total Bravo Fall Scale indicates High Risk Score (45 or more points). Fall prevention measures have been instituted. Side Rails Up X 2 Placed Close to Nursing Station. Assessment: 13:20 Reassessment: patient appears more lethargic responsive to pain and will moan zb occasionally. 13:30 Reassessment: RT at bedside patient placed on bipap. zb 14:28 Reassessment: Patient appears in no apparent distress at this time. patient remains zb lethargic. bipap remains on. no acute distress at this time. 15:30 Reassessment: Patient appears in no apparent distress at this time. patient remains zb lethargic responsive to pain. Bipap remains on. 16:30 Reassessment: Blood pressure remain within normal limits. patient remains on bipap. zb 17:30 Reassessment: patient remain on bipap. IV fluids infusing. appears to be asleep at this zb time. 18:20 Reassessment: Hospitalist at bedside. Daughter called and spoke to hospitalist. zb Vital Signs: 12:32 BP 97 / 55; Pulse 53; Resp 23; Temp 96.8(TE); Pulse Ox 100% on 100% Nebulizer Mask; zb Height 5 ft. 4 in. (162.56 cm); Pain 0/10; 12:48 Weight 117.93 kg; zb 13:47 BP 116 / 79; Pulse 46; Resp 20; Pulse Ox 100% on BiPAP; zb 14:28 BP 104 / 45; Pulse 50; Resp 20; Pulse Ox 100% on BiPAP; zb 15:09 BP 112 / 61; Pulse 50; Resp 20; Pulse Ox 100% on BiPAP; zb 16:15 BP 110 / 79; Pulse 54; Resp 18; Pulse Ox 99% on BiPAP; zb 17:02 BP 112 / 68; Pulse 48; Resp 22; Pulse Ox 100% on BiPAP; zb 18:12 BP 94 / 51; Pulse 47; Resp 22; Pulse Ox 100% on BiPAP; zb 19:06 BP 100 / 62; Pulse 46; Resp 19; Pulse Ox 100% on BiPAP; zb 20:00 BP 100 / 49; Pulse 46; Resp 22; Pulse Ox 100% on BiPAP; zb 21:00 BP 110 / 98; Pulse 58; Resp 18; Pulse Ox 100% on BiPAP; zb 22:15 BP 147 / 99; Pulse 54; Resp 17; Pulse Ox 100% on BiPAP; zb 23:00 BP 143 / 67; Pulse 56; Resp 20; Pulse Ox 100% on BiPAP; zb 12:48 Body Mass Index 44.63 (117.93 kg, 162.56 cm) zb ED Course: 12:24 Patient arrived in ED. iw 12:32 Ilene Ahuja RN is Primary Nurse. zb 12:34 Anthony Zavala MD is Attending Physician. abhijit 12:38 Triage completed. zb 12:40 Anthony Gordon PA is PHCP. cp 13:00 Arm band placed on. zb 13:00 Oxygen administration via non-rebreather mask \T\ 15L/min. zb 13:11 Chest Single View XRAY In Process Unspecified. EDMS 13:28 Head C Spine Cap Wo Con In Process Unspecified. EDMS 13:51 Patient has correct armband on for positive identification. supervisor fishing on. Pulse zb ox on. NIBP on. Door closed. Noise minimized. 13:51 EKG done, by electrical laboratory technician. reviewed by Anthony CAMARA. zb 16:16 Gurinder Noble MD is Hospitalizing Provider. cp 17:00 Served as a physical metallurgist during rectal exam. zb 17:20 Garcia cath inserted, using sterile technique, 16 Fr., by nc, balloon inflated, to zb gravity drainage, urine specimen collected. Patient tolerated well. 18:20 No provider procedures requiring assistance completed. Patient admitted, IV remains in zb place. 23:47 Inserted saline lock: 20 gauge in right antecubital area, using aseptic technique. lh3 Administered Medications: 12:42 CANCELLED (Physician Discretion): NS 0.9% (30 ml/kg) 30 ml/kg IV at bolus once; Sepsis cp Protocol 13:09 Drug: NS 0.9% 1000 ml Route: IV; Rate: 1 bolus; Site: right wrist; zb 14:00 Follow up: Response: No adverse reaction; IV Status: Completed infusion; IV Intake: zb 1000ml 17:00 Drug: Rocephin (cefTRIAXone) 1 grams Route: IV; Rate: calculated rate; Site: right zb wrist; 18:00 Follow up: Response: No adverse reaction; IV Status: Completed infusion; IV Intake: 10mlzb 17:00 Drug: Zithromax (azithromycin) 500 mg Route: IVPB; Infused Over: 1 hrs; Site: right zb wrist; 18:00 Follow up: Response: No adverse reaction; IV Status: Completed infusion; IV Intake: zb 250ml 17:47 Drug: NS 0.9% 1000 ml Route: IV; Rate: 1 bolus; Site: right wrist; zb 04/19 00:05 Follow up: Response: No adverse reaction; IV Status: Completed infusion; IV Intake: zb 1000ml 04/18 21:59 Drug: Lovenox (enoxaparin) 40 mg Route: Sub-Q; Site: right lower abdomen; zb 04/19 00:05 Follow up: Response: No adverse reaction zb Intake: 04/18 14:00 IV: 1000ml; Total: 1000ml. zb 18:00 IV: 250ml; Total: 1250ml. zb 18:00 IV: 10ml; Total: 1260ml. zb 04/19 00:05 IV: 1000ml; Total: 2260ml. zb Outcome: 04/18 16:17 Decision to Hospitalize by Provider. cp 18:00 Admitted to ER Hold. Please see [facility] for further documentation. zb 18:00 Condition: unchanged 18:00 Instructed on the need for admit. 04/21 05:05 Patient left the ED. bb Signatures: Dispatcher [employer] EDAnthony Wadsworth MD MD cha Ballard, Brenda RN RN Deandra Jonas RN RN iw Page, Corey, PA PA cp Brown, Zipporah, RN RN zb Hardee, Latisha, RN RN lh3 Corrections: (The following items were deleted from the chart) 04/18 12:42 12:32 Chief complaint: EMS states: called out for a fall. patient was found on the zb ground at her house aox2. blood pressure was in the 80 systolic and patient was sating on 77% on RA. Given NC no improvement. Place on Non-breather patients sat increased to 97%. 20 R wrist. zb 04/19 00:11 04/18 13:20 Reassessment: patient appears more lethargic responsive to pain and will zb grown occasionally. zb
[2021-04-18] MEDS ORDERED: AZITHROMYCIN 500 MG INJ IVPB ONE (16:38)
[2021-04-18] MEDS ORDERED: CEFTRIAXONE/SWI 1gm 1 GM/10 ML SYR ONE (16:38)
[2021-04-18] MEDS ORDERED: NA CHLORIDE 0.9% 250 ML ONE ×2 (16:38→23:44)
--- NOTE | 2021-04-18 17:00 | P.HP ---
Certification for Inpatient With expected LOS: >2 Midnights Patient will require the following post-hospital care: None Practitioner: I am a practitioner with admitting privileges, knowledge of patient current condition, hospital course, and medical plan of care. Services: Services provided to patient in accordance with Admission requirements found in Title 42 Section 412.3 of the Code of Federal Regulations <Deana Love - Last Filed: 04/18/21 17:18> Patient History Date of Service: 04/18/21 Reason for admission: Hypoxia History of Present Illness: 76 year old female with PMHx of HTN , HLD presents to ED with hypoxia. She sustained fall at home and was found on floor by family. EMS was called and her blood pressure was in 80s systolic , O2 sats in 70s. She was placed on NRB and was given bolus fluids. She is confused and lethargic. CXR noted for pneumonia , COVID negative , lactic acid 3 , creatinine 2.43, hgb 9.0. - Past Medical/Surgical History Diabetic: No Past Medical History: Unable to obtain Past Surgical History: Unable to obtain - Social History Smoking Status: Never smoker Alcohol use: No CD- Drugs: No Caffeine use: No Place of Residence: Home <KateDeana - Last Filed: 04/18/21 17:18> Date of Service: 04/18/21 - Family History Family History: Reviewed- Non-Contributory (unable to obtain) <Gurinder Noble - Last Filed: 04/18/21 21:40> Review of Systems is unable to be obtained <KateDeana - Last Filed: 04/18/21 17:18> Physical Examination - Physical Exam General: In no apparent distress HEENT: Atraumatic, Mucous membr. moist/pink Neck: Supple, Without JVD or thyroid abnormality Respiratory: Clear to auscultation bilaterally Cardiovascular: No edema, Normal pulses, Regular rate/rhythm Gastrointestinal: Normal bowel sounds, No tenderness, No masses, No rebound Musculoskeletal: No clubbing, No swelling, No erythema, No tenderness Integumentary: No rashes, No ulcers Neurological: Other (unable to assess ) - Studies Laboratory Data (last 24 hrs) 04/18/21 12:48: WBC 12.40 H, Hgb 9.7 L, Hct 30.2 L, Plt Count 233 04/18/21 12:48: Sodium 136, Potassium 3.9, BUN 37 H, Creatinine 2.43 H, Glucose 91, Total Bilirubin 1.0, AST 52 H, ALT 20, Alkaline Phosphatase 265 H, Amylase 17 L, Lipase 57 L Microbiology Data (last 24 hrs): 04/18/21 13:11 Nasopharnyx Influenza Type A Antigen Screen - Final 04/18/21 13:11 Nasopharnyx Influenza Type B Antigen Screen - Final <Deana Love - Last Filed: 04/18/21 17:18> - Studies Laboratory Data (last 24 hrs) 04/18/21 12:48: WBC 12.40 H, Hgb 9.7 L, Hct 30.2 L, Plt Count 233 04/18/21 12:48: Sodium 136, Potassium 3.9, BUN 37 H, Creatinine 2.43 H, Glucose 91, Total Bilirubin 1.0, AST 52 H, ALT 20, Alkaline Phosphatase 265 H, Amylase 17 L, Lipase 57 L Microbiology Data (last 24 hrs): 04/18/21 13:11 Nasopharnyx Influenza Type A Antigen Screen - Final 04/18/21 13:11 Nasopharnyx Influenza Type B Antigen Screen - Final <Gurinder Noble - Last Filed: 04/18/21 21:40> Assessment and Plan Discharge Plan: Home Plan to discharge in: 48 Hours - Advance Directives Does patient have a Living Will: No Does patient have a Durable POA for Healthcare: No Physician Review Additional Text: Assessment: Hypoxia Sepsis 2/2 COVID pneumonia Hypotension SHAHRAM Plan: Hypoxia: Continue Bipap. monitor O2 sats. Sepsis 2/2 COVID pneumonia: Continue IV abx. Pulm consult placed . COVID workup initiated. Repeat Lactate in 3 hours. Hypotension: Continue IV fluids. Hold BP meds . continue to monitor SHAHRAM: Continue IV fluids. nephro consult placed . Stephens catheter ordered. Time Spent Managing Pts Care (In Minutes): 55 <Deana Love - Last Filed: 04/18/21 17:18> Physician Review Additional Text: Problem List Acute hypoxemic respiratory failure secondary to pneumonia Sepsis secondary to Pneumonia, bacterial vs COVID-19 SHAHRAM, no h/o CKD R>L lower extremity edema acute metabolic encephalopathy secondary to sepsis/infection acute primary respiratory acidosis with secondary metabolic acidosis s/p sepsis bolus in ED, BP improved pt minimally responsive lactic acidosis imaging concerning for COVID-19 pneumonia, however COVID test is negative pt fully vaccinated earlier this year, family supposedly fully vaccinated and daughter stated patient hasn't left home symptoms ongoing over last week pulm consulted SHAHRAM, prerenal - secondary to dehydration/ anorexia over last week; nephrology consulted stephens inserted in ED repeat inflammatory markers, CXR, ABG in AM check BMP and ABG later this evening <Gurinder Noble - Last Filed: 04/18/21 21:40>
[2021-04-18] MEDS ORDERED: ACETAMINOPHEN 500 MG TAB PO PRN (17:06)
[2021-04-18 17:27] LABS: Urine Blood 3+ (Negative); Urine Glucose Negative (Negative); Urine Protein 3+ (Negative); Urine Specific Gravity >=1.030 (1.005-1.030); Urine pH 5.5 (5.0-7.0)
[2021-04-18 17:28] LABS: Ferritin 347.8 ng/mL (8-388)
[2021-04-18 17:45] LABS: Protime INR 1.28
[2021-04-18] MEDS ORDERED: Levofloxacin 750mg IV 750 MG/150 ML BAG IV ONE ×2 (18:00→22:14)
[2021-04-18] MEDS ORDERED: Levofloxacin 250mg IV 250 MG/50 ML BAG IV SCH (18:00)
[2021-04-18 18:50] LABS: Arterial Blood Carboxyhemoglob 1.6 % (0-1.5); Blood Gas Oxyhemoglobin 93.8 % (94-97); Blood O2 Saturation 96.3 % (92-98.5)
[2021-04-18 18:52] LABS: Arterial Blood Carboxyhemoglob 1.6 % (0-1.5); Blood Gas Oxyhemoglobin 91.5 % (94-97)
[2021-04-18] MEDS: METHYLPREDNISOLONE 40 MG INJ IV SCH (19:00)
[2021-04-18] MEDS ORDERED: NA CHLORIDE 0.9% 1,000 ML IV SCH (22:00)
[2021-04-18 22:06] LABS: Arterial Blood Carboxyhemoglob 1.6 % (0-1.5); Blood Gas Oxyhemoglobin 92.2 % (94-97); Blood O2 Saturation 94.8 % (92-98.5)
[2021-04-18] MEDS ORDERED: METHYLPREDNISOLONE 40 MG INJ ONE (22:13)
[2021-04-18] MEDS ORDERED: ENOXAPARIN 40 MG/0.4 ML SQ ONE (22:14)
[2021-04-18] MEDS ORDERED: VANCOMYCIN/NS 1 gm 1 GM/250 ML BAG IVPB SCH (23:00)
[2021-04-18] MEDS ORDERED: Meropenem 500 MG/100 ML BAG IV SCH (23:00)
[2021-04-18] MEDS ORDERED: VANCOMYCIN 2 GM in NA CHLORIDE 0.9% 500 ML IVPB ONE (23:00)
[2021-04-18] MEDS ORDERED: Meropenem 500 MG VIAL IV ONE (23:43)
[2021-04-18] MEDS ORDERED: VANCOMYCIN 1 GM/VIAL ONE (23:43)
[2021-04-18] MEDS ORDERED: NA CHLORIDE 0.9% 100 ML ONE (23:44)
[2021-04-19 00:35] LABS: Potassium 3.7 mmol/L (3.5-5.1)
[2021-04-19] MEDS: METHYLPREDNISOLONE 40 MG INJ IV SCH ×4 (01:00→17:18)
[2021-04-19] MEDS ORDERED: METHYLPREDNISOLONE 40 MG INJ IV SCH (01:00)
[2021-04-19] MEDS ORDERED: METHYLPREDNISOLONE 40 MG INJ ONE ×3 (01:24→16:54)
--- NOTE | 2021-04-19 01:44 | P.INFCA ---
Sepsis Focused Assessment - Focused Assessment Complete? Sepsis Focused Assessment Completed?: Yes - Sepsis Screen Result Severe Sepsis: Positive Septic Shock: Negative - Evaluation Current stage of sepsis: Severe sepsis - Vital Signs Reviewed: Yes Temperature: 97 F Heart rate: 60 Blood Pressure: 119/74 Respiratory Rate: 16 O2 Sat by Pulse Oximetry: 100 - Examination Date exam was performed: 04/18/21 Time exam was performed: 20:00 Heart: S1, S2, Bradycardia Lungs: Decreased breath sounds, Respiratory distress, Other (Bipap) Peripheral pulses: 2+ Slightly diminished Peripheral pulse location: Radial Capillary refill: <2 Seconds Skin examination: Pale
[2021-04-19 03:07] LABS: Absolute Lymphocytes (CBC) 0.5 K/uL (0.7-4.9); Basophils % 0.4 % (0-1.3); Hematocrit 31.8 % (36.0-45.0); Lymphocytes % 5.1 % (15.3-44.8); MPV 9.2 fL (7.6-11.3); RBC Red Blood Cell Count 3.41 M/uL (3.86-4.86)
[2021-04-19 03:26] LABS: Albumin 2.7 g/dL (3.4-5.0); Bilirubin Total 0.7 mg/dL (0.2-1.0); Ferritin 352.6 ng/mL (8-388); Potassium 4.4 mmol/L (3.5-5.1); Protein, Total 8.5 g/dL (6.4-8.2)
--- NOTE | 2021-04-19 05:33 | P.CNS ---
Date of Consult: 04/19/21 Reason for Consult: pneumonia Chief Complaint: Hypoxia History of Present Illness: age76 , AW hypoxemia was found on the flooe and hypotensive,confused and lethargic,covid neg, renla failure Allergies No Known Allergies Allergy (Unverified 04/18/21 22:12) - Past Medical/Surgical History Diabetic: No -: HTN - Social History Alcohol use: No CD- Drugs: No Caffeine use: No Place of Residence: Home Review of Systems is unable to be obtained Physical Examination Temp Pulse Resp BP Pulse Ox 97.2 F 53 12 134/70 98 04/19/21 02:00 04/19/21 02:00 04/19/21 02:00 04/19/21 02:00 04/19/21 02:00 General: Unresponsive Laboratory Data (last 24 hrs) 04/18/21 12:48: WBC 12.40 H, Hgb 9.7 L, Hct 30.2 L, Plt Count 233 04/18/21 12:48: Sodium 136, Potassium 3.9, BUN 37 H, Creatinine 2.43 H, Glucose 91, Total Bilirubin 1.0, AST 52 H, ALT 20, Alkaline Phosphatase 265 H, Amylase 17 L, Lipase 57 L - Problems (1) Pneumonia Current Visit: Yes Status: Acute Plan: age76 AW hypoxemia and renal failure.confused/Bialteral pneumonia/covidneg/ Atyp pneumonia- CW IVF , change to [facility], pending Qualifiers: Pneumonia type: due to unspecified organism
[2021-04-19] MEDS: NA CHLORIDE 0.9% 1,000 ML IV SCH ×2 (05:36→09:38)
[2021-04-19] MEDS ORDERED: WATER FOR INJ,STERILE 10 ML IM PRN ×2 (06:10→07:23)
[2021-04-19] MEDS ORDERED: ZIPRASIDONE MESYLA 20 MG/VIAL IM PRN (06:10)
[2021-04-19] MEDS ORDERED: ZIPRASIDONE MESYLA 20 MG/VIAL IM ONE ×2 (06:18→06:36)
[2021-04-19] MEDS ORDERED: WATER FOR INJ,STERILE 10 ML ONE (06:36)
--- NOTE | 2021-04-19 07:02 | RAD REPORT ---
EXAM DESCRIPTION: US - Extrem Venous W Compress Adam - 04/19/2021 1:22 am CLINICAL HISTORY: Lower extremity edema COMPARISON: None. TECHNIQUE: Real-time sonographic evaluation of the bilateral lower extremity deep venous systems was performed. FINDINGS: Normal compressibility, flow augmentation, phasic flow and spontaneous flow is identified in both the left and right lower extremity deep venous systems. No intraluminal filling defects seen. IMPRESSION: No DVT in either lower extremity.
--- NOTE | 2021-04-19 07:02 | RAD REPORT ---
EXAM DESCRIPTION: US - Renal Ultrasound-Complete - 04/19/2021 1:22 am CLINICAL HISTORY: delisa COMPARISON: No comparisons FINDINGS: The right kidney measures 10.4 cm. No hydronephrosis, focal mass or perinephric fluid. The left kidney was not visualized. The urinary bladder is incompletely distended without gross abnormality seen. IMPRESSION: Unremarkable right kidney without evidence of hydronephrosis. The left kidney was not vi sualized.
--- NOTE | 2021-04-19 07:16 | RAD REPORT ---
EXAM DESCRIPTION: RAD - Chest Single View - 04/19/2021 5:16 am CLINICAL HISTORY: f/u b/l opacities, hypoxia COMPARISON: Chest Single View dated 04/18/2021; Chest Single View dated 06/07/2020 FINDINGS: Slight increased lung volumes but otherwise similar moderate bilateral airspace disease. C ardiomegalyNo acute osseous abnormality. No significant pleural effusions or pneumothorax. IMPRESSION: Mild increased lung volumes but otherwise similar multifocal airspace disease concerning for pneumonia.
[2021-04-19] MEDS: ENOXAPARIN 30 MG/0.3 ML SQ SCH ×2 (07:36→09:38)
[2021-04-19] MEDS ORDERED: ENOXAPARIN 30 MG/0.3 ML SQ ONE (07:55)
[2021-04-19] MEDS ORDERED: AZITHROMYCIN IV 250 MG in NA CHLORIDE 0.9% 250 ML IVPB SCH (09:00)
[2021-04-19] MEDS ORDERED: CEFTRIAXONE 1 GM/NS 50 ML 1 GM/50 ML BAG IV SCH (09:00)
--- NOTE | 2021-04-19 14:11 | ECHO ---
HEIGHT: 5 ft 4 in WEIGHT: 280 lb 0 oz DATE OF STUDY: 04/19/[address]: Gurinder Noble MD 2-DIMENSIONAL: YES M.MODE: YES DOPPLER: YES COLOR FLOW: YES TDS: PORTABLE: DEFINITY: BUBBLE STUDY: DIAGNOSIS: CARDIAC HISTORY: CATHERIZATION: SURGERY: PROSTHETIC VALVE: PACEMAKER: MEASUREMENTS (cm) DIASTOLIC (NORMALS) SYSTOLIC (NORMALS) IVSd 1.3 (0.6-1.2) LA Diam (1.9-4.0) LVEF 60% LVIDd 4.2 (3.5-5.7) LVIDs 2.8 (2.0-3.5) %FS 31% LVPWd 1.2 (0.6-1.2) Ao Diam 2.9 (2.0-3.7) 2 DIMENSIONAL ASSESSMENT: RIGHT ATRIUM: NORMAL LEFT ATRIUM: NORMAL RIGHT VENTRICLE: NORMAL LEFT VENTRICLE: NORMAL TRICUSPID VALVE: MODERATE TO SEVERE TRICUSPID REGURGITATION MITRAL VALVE: MILD MITRAL REGURGITATION PULMONIC VALVE: NORMAL AORTIC VALVE: NORMAL PERICARDIAL EFFUSION: NONE AORTIC ROOT: NORMAL LEFT VENTRICULAR WALL MOTION: NORMAL DOPPLER/COLOR FLOW: SEE BELOW COMMENTS: NORMAL LEFT VENTRICULAR EJECTION FRACTION 55-60% WITH WALL MOTION ABNORMALITY. MODERATE TO SEVERE TRICUSPID REGURGITATION WITH PULMONARY HYPERTENSION WITH RIGHT VENTRICULAR SYSTOLIC PRESSURE >60mmHg. MODERATE DIASTOLIC DYSFUNCTION. TECHNOLOGIST: GADIEL INGRAM
--- NOTE | 2021-04-19 15:44 | P.PN ---
Subjective Date of Service: 04/19/21 Chief Complaint: Hypoxia Subjective: Improving (more awake, more agitated, confused, refusing meds, pulled IVs, wants to go home, not understanding her situation. reports generalized weakness. denies pain) Review of Systems 10-point ROS is otherwise unremarkable Physical Examination - Vital Signs Temperature: 97.2 F Blood Pressure: 131/66 Pulse: 60 Respirations: 16 Pulse Ox (%): 94 - Studies Microbiology Data (last 24 hrs): 04/18/21 12:55 Blood - Blood Anaerobic Blood Culture - Final 04/18/21 12:48 Blood - Blood Anaerobic Blood Culture - Final 04/18/21 13:11 Nasopharnyx Influenza Type A Antigen Screen - Final 04/18/21 13:11 Nasopharnyx Influenza Type B Antigen Screen - Final Assessment & Plan Physician Review Additional Text: Physical exam GEN: Alert, orientedx2, confused HEENT: Normal conjunctiva, sclera anicteric CV: Regular rate and rhythm, 2+ b/l pitting edema Pulm: Nonlabored respiration on room air ABD: Soft, nontender, nondistended MSK: No joint tenderness Integumentary: No rashes Neuro: slight slurred speech at times (intermittent), CN II-XII grossly intact, str 5/5 upper extremities, 4+/5 b/l lower extremities, sensation intact Problem List Acute hypoxemic respiratory failure secondary to pneumonia Sepsis secondary to Pneumonia, bacterial vs COVID-19 SHAHRAM, no h/o CKD R>L lower extremity edema, possible CHF acute metabolic encephalopathy secondary to sepsis/infection acute primary respiratory acidosis with secondary metabolic acidosis UTI, acute cystitis morbid obesity s/p sepsis bolus in ED, BP improved pt more responsive now, confused, agitated, geodon helped lactic acidosis imaging concerning for COVID-19 pneumonia, however COVID test is negative pt fully vaccinated earlier this year, family supposedly fully vaccinated and daughter stated patient hasn't left home symptoms ongoing over last week pulm consulted SHAHRAM, prerenal - likely secondary to dehydration/ anorexia over last week; nephrology consulted stephens inserted in ED repeat inflammatory markers, ABG refused labs this AM, will have family talk to her pulled IV, will need replaced for IV antibiotics vitals more stable UTi, f/u urine culture echo ordered for today, pt with b/l edema, short of breath, weak consider MRI if no improvement in mentation PT consult once more stable Dispo: hospitalization > 2 days Time Spent Managing Pts Care (In Minutes): 40
[2021-04-19 17:19] LABS: UR PROTEIN 117 mg/dL (<11.9); UR SODIUM 8 mmol/L (27-287)
[2021-04-19] MEDS ORDERED: Levofloxacin500mg IV 500 MG/100 ML BAG IV SCH (18:00)
[2021-04-19 20:31] VITALS: BMI 48.0
[2021-04-20] MEDS: METHYLPREDNISOLONE 40 MG INJ IV SCH ×3 (01:00→17:00)
[2021-04-20 05:12] LABS: Absolute Lymphocytes (CBC) 0.5 K/uL (0.7-4.9); Basophils % 0.1 % (0-1.3); Hematocrit 30.5 % (36.0-45.0); Lymphocytes % 5.8 % (15.3-44.8); MPV 9.4 fL (7.6-11.3); RBC Red Blood Cell Count 3.29 M/uL (3.86-4.86)
[2021-04-20 05:34] LABS: Albumin 2.4 g/dL (3.4-5.0); Bilirubin Total 0.4 mg/dL (0.2-1.0); Magnesium 2.2 mg/dL (1.8-2.4); Phosphorus 4.9 mg/dL (2.5-4.9); Potassium 4.6 mmol/L (3.5-5.1); Protein, Total 7.5 g/dL (6.4-8.2)
[2021-04-20] MEDS ORDERED: VANCOMYCIN 2 GM in NA CHLORIDE 0.9% 500 ML IVPB SCH ×2 (06:00→23:00)
[2021-04-20] MEDS ORDERED: ENOXAPARIN 30 MG/0.3 ML SQ ONE (07:52)
[2021-04-20] MEDS: ENOXAPARIN 30 MG/0.3 ML SQ SCH (08:41)
[2021-04-20 10:53] VITALS: O2SAT 92
[2021-04-20] MEDS ORDERED: NA CHLORIDE 0.9% 500 ML IV ONE (11:00)
[2021-04-20] MEDS ORDERED: NA CHLORIDE 0.9% 500 ML ONE ×2 (11:20→21:26)
[2021-04-20] MEDS ORDERED: METHYLPREDNISOLONE 40 MG INJ ONE ×2 (11:24→16:55)
--- NOTE | 2021-04-20 11:58 | CON ---
Date of Consultation: 04/20/2021 Admitted on 04/18/[address] Noble's service. I saw the patient on 04/20/2021. Reason For Consultation: Hypoxia, new onset diastolic congestive heart failure, and tricuspid regurg itation. History Of Present Illness: Ms. Cote is 76, who was admitted with fall, hypoxia, altered menta l status, pneumonia. She was negative for COVID. She has sepsis. Echocardiogram showed severe tric uspid regurgitation with severe pulmonary hypertension with moderate diastolic congestive heart failu re. The patient remained confused, very difficult to obtain a history from her. She also has acute kidney injury with a creatinine of 2.3, hemoglobin of 9.8. Her last pO2 was 85, pCO2 was 46, pH is 7 .27. Her CRP is elevated. Her procalcitonin is elevated. As stated earlier, she was COVID negative . No cardiac complaint. Past Medical History: Hypertension, dyslipidemia. Allergies: NONE. Review of Systems: Negative. Social History: Negative. Family History: Negative. Medications: At home include Singulair, atenolol, and Prozac. Physical Examination: General: She was confused, hypoxic, but no acute distress per se. Did not complain of chest pain or shortness of breath or palpitation. Vital Signs: Stable, afebrile. HEENT: Negative. Neck: Supple with no bruit. Chest: Revealed crackles both bases. Cardiac: Revealed a regular rhythm and rate with S4 gallops. She did have a 3/6 holosystolic murmur at the third intercostal space that decreased with respiration. Abdomen: Benign. Extremities: Revealed trace edema. Diagnostic Data: As stated earlier. Impression And Plan: 1.Severe pulmonary hypertension. 2.Moderate diastolic congestive heart failure. 3.Normal ejection fraction. 4.Sepsis and pneumonia. 5.Hypertension. 6.Dyslipidemia. 7.Acute kidney injury. 8.Anemia. The patient is on Lovenox, Levaquin. She is on steroids. She is on other antibiotics. I think she should be on a low dose Lasix in addition to her regimen once her creatinine improves. F or now, I would just stay off diuretics. I think she needs to be on a low-dose calcium channel block er, probably Norvasc 5 mg daily to help with her pulmonary hypertension. No further cardiac workup a t this point. We will continue to follow her. NENA Voice ID: [id number] Report ID: [id number]
[2021-04-20 12:43] LABS: Urine Appearance CLOUDY (Clear); Urine Bilirubin NEGATIVE (Negative); Urine Blood 3+ (Negative); Urine Color YELLOW (Yellow); Urine Glucose NEGATIVE (Negative); Urine Microscopic Reflex ORDER UMIC; Urine Protein TRACE (Negative); Urine Urobilinogen 0.2 mg/dL (0.2-1.0)
[2021-04-20 12:48] LABS: Urine Protein/Creatinine Ratio 0.49 ratio (<0.15)
[2021-04-20 13:00] LABS: Urine Waxy Casts 0-5 /LPF (NONE SEEN)
[2021-04-20 13:01] LABS: Urine Bacteria >50 /HPF (<20)
--- NOTE | 2021-04-20 16:22 | CON ---
Date of Consultation: 04/20/2021 Reason For Consultation: Elevated BUN and creatinine, fluid management. History Of Present Illness: This is a pleasant 76-year-old female. All the information has been obt ained from the daughter over the phone as the patient is slightly confused. The patient with signifi cant past medical history of hypertension, hyperlipidemia, the patient was in her regular state of he alth till almost 2 weeks when the patient started deteriorating, started having some nausea and decre ased intake and decreased urine output. Then in the last couple of days, the patient found to have h ypoxemia and low blood pressure. For that reason, the patient was approached to the hospital, found to have pneumonia with interstitial infiltration, but COVID was negative. The patient found to have low blood pressure, systolic down to 70 and her lab data showing a creatinine of 2.2 with GFR of 21. Yesterday, her GFR was 19 with creatinine 2.4. According to the family, the patient had regular lab data every 3 months in her doctor's office and had been within normal limits. The lab data back in May 2020; creatinine of 1. Past Medical History: Includes; 1.Hypertension. 2.Hyperlipidemia. Past Surgical History: None obtainable. Social History: Denied smoking, denied drinking, denied drugs abuse. Lives with family. Family History: Positive for hypertension. Review of Systems: Head and Neck: No red eye. No ear pain. GI: Decreased intake, nausea, occasional vomiting. : Decreased urine output. Presentation Designer: No vaginal discharge. Respiratory: Has shortness of breath. Has hypoxemia. Cardiovascular: No chest pain. Has leg swelling. Endocrine: No polydipsia. Skin: No rash. Neuro: Has confusion. Physical Examination: Vital Signs: When I saw the patient; blood pressure 132/71, pulse of 63, afebrile. Chest: Crackles bilateral. Heart: S1, S2. Systolic murmur. Abdomen: Soft, nontender. Extremity: Trace edema. Neuro: Alert, oriented, confused. No focality. Current Medications: The patient on include; 1.Levaquin. 2.Lovenox. 3.Vancomycin. Laboratory Data: Sodium 135, potassium 4.6, bicarb 24, BUN 48, creatinine 2.2, GFR of 21, calcium 8. 2, phosphorus 4.9, magnesium 2.2, albumin 2.4, corrected calcium is 9.6. Cortisol of 16. Urinalysis ; +3 blood, RBC of 20, PC ratio 0.4, +3 protein. Echocardiogram; pulmonary hypertension with diastol ic dysfunction. Renal ultrasound, 10.4. The left kidney will do not visualize, but CT did not show any hydronephrosis. Chest x-ray, cardiomegaly with interstitial infiltration. Assessment And Plan: 1.Acute kidney injury, multifactorial secondary to possible pulmonary renal syndrome given the prese nce of interstitial infiltration superimposed with marginal blood pressure, nonoliguric. Given the p ulmonary hypertension and the worsening kidney function, I will send for full serology. Obstructive uropathy has been ruled out. We will monitor the patient. Hold all blood pressure medications for t he time being given the incident of low blood pressure. 2.Hypertension with the presence of acute kidney injury, low blood pressure. Hold blood pressure me dications. We will start gentle hydration. 3.Pulmonary hypertension, looked to me chronic with the presence of the kidney injury and the inters titial infiltration looks chronic presentation. We will send for serology. We will follow up with P ulmonary. Agree with Cardiology the need for calcium channel nadine to be resumed down on the road and depending on the improvement in the kidney function, we will try to challenge with diuresis. 4.Pneumonia, interstitial. We will follow up with Pulmonary. GISELL/ALCIDES Voice ID: [id number] Report ID: [id number]
--- NOTE | 2021-04-20 17:49 | P.PN ---
Subjective Date of Service: 04/20/21 Chief Complaint: Hypoxia Patient remained confused but looks better. She does not have full appreciation of her illness. Physical Examination - Vital Signs Temperature: 98.1 F Blood Pressure: 128/66 Pulse: 64 Respirations: 15 Pulse Ox (%): 91 - Physical Exam General: In no apparent distress, Confused HEENT: Mucous membr. moist/pink Neck: JVD not distended Respiratory: Clear to auscultation bilaterally, Normal air movement Cardiovascular: No edema, Regular rate/rhythm, Normal S1 S2 Gastrointestinal: Soft and benign, Non-distended, No tenderness Musculoskeletal: No swelling Integumentary: No rashes Neurological: Normal strength at 5/5 x4 extr, Cranial nerves 3-12 intact Urinary: Garcia catheter - Studies Microbiology Data (last 24 hrs): 04/18/21 12:55 Blood - Blood Anaerobic Blood Culture - Final 04/18/21 12:48 Blood - Blood Anaerobic Blood Culture - Final Assessment And Plan Physician Review Additional Text: Problem List Acute hypoxemic respiratory failure secondary to pneumonia Sepsis secondary to Pneumonia, bacterial vs COVID-19 SHAHRAM, no h/o CKD R>L lower extremity edema, possible CHF acute metabolic encephalopathy secondary to sepsis/infection acute primary respiratory acidosis with secondary metabolic acidosis UTI, acute cystitis morbid obesity s/p sepsis bolus in ED, BP improved Patient remain confused but not agitated lactic acidosis resolved. Chest x-ray showing atypical pneumonia pattern. Patient fully vaccinated for COVID. Family also fully vaccinated and endorsed no recent exposure. She has not left home over the past couple of weeks. Pulm input appreciated. SHAHRAM has not responded to IV hydration. nephrology input appreciated. No obstructive uropathy Garcia catheter in place. Continue IV antibiotics for atypical pneumonia and UTI. vitals stable f/u urine culture. Echocardiogram showing severe pulmonary hypertension and tricuspid regurgitation. Atypical infiltrate on x-ray may be consistent with CHF. Consider MRI if no improvement in mentation PT consult once more stable
--- NOTE | 2021-04-20 17:57 | CON ---
Date of Consultation: 04/19/2021 Chief Complaint: Acute kidney injury, on chronic kidney disease. The patient has nonoliguric acute kidney injury. History Of Present Illness: She is a 76-year-old woman with past medical history of hypertension, hy perlipidemia, hypertensive heart and kidney disease. She presented to the emergency room because of shortness of breath, generalized weakness, presyncope. She sustained fall at home and was found on t he floor by family, EMS was called. Her blood pressure systolic was low in 80s systolic. O2 sat was 70. She was placed on nonrebreather mask and will be given bolus of fluids. She was confused, leth argic and was complaining of some generalized weakness. Denies chest pain. Chest x-ray was consiste nt with pneumonia, COVID test was negative. Lactic acid was elevated. Creatinine level was 2.43, hem oglobin 9.0. Review of Systems: The patient remains confused. She is agitated and and she cannot provide review of system s. She remains in ER. Past Medical History: The patient has hypertension, hyperlipidemia, obesity. She does not have hist ory of diabetes. She has chronic kidney disease stage 3. Family History: Unobtainable. Social History: Unobtainable. Physical Examination: General: The patient is not in apparent distress. Eyes: Nonicteric sclerae. EOMI. Ears, Nose, Mouth and Throat: Oral mucosa moist. No pallor. Neck: Supple. No bruits. Lungs: Few rhonchi. Heart: S1, S2. No pericardial friction rub. Abdomen: Soft, benign. Extremities: Slight edema, generalized. Neurologic: The patient is anxious, although she follows some commands. Laboratory Data: April 18; WBC 12.4, hemoglobin 9.7, hematocrit 34.2, platelet count 233,000. So dium 156, potassium 3.9, BUN 37, creatinine 2.43, glucose 91, total bilirubin 1.0. Influenza A antig en screen was done and pending. Lab work showed lipase 57, amylase 17. CK level is 47. Lab work on show sodium 157, potassium 4.4, chloride 105, CO2 23, BUN 39, creatinine 2.3, glucose 99, calci um 8.0, ferritin 352.6, AST 46, ALT 21, AP 255, albumin 2.7, total protein 8.5, triglyceride 102. Ch olesterol/HDL ratio 5.06. Procalcitonin 0.25. Impression And Plan: Acute on chronic kidney injury. The patient had multiple medical problems. Sh e presented with hypovolemia, hypotension, and creatinine worked up to 2.43. Continue hydration with IV fluids. The patient although has underlying chronic kidney disease. There is hypoalbuminemia pr esent and the patient will have workup to rule out proteinuria. On previous occasion, the patient wa s found to have anemia, recommend workup for anemia as well. Review of previous medical records show ed creatinine level back in 2019 was , which corresponds with chronic kidney disease stage 3. On urinalysis on previous occasion, the patient had mild blood, which may correspond with rhabdom yolysis as well as microscopic hematuria, which was present previously. 1.Recommend to check for any evidence of vasculitis. 2.Hypertension. Continue blood pressure medication. 3.Proteinuria showed moderate proteinuria. The patient likely has underlying disease with begin nep hrosclerosis although vasculitis needs to be ruled out. EB/MODL Voice ID: [id number] Report ID: [id number]
--- NOTE | 2021-04-20 18:04 | P.DS ---
Admission Date: 04/18/21 Discharge Date: 04/20/21 Disposition: TRANSFER TO [facility] Discharge Condition: FAIR Reason for Admission: Hypoxia - Problems (1) Septic shock Status: Acute (2) Acute cystitis without hematuria Status: Acute (3) Acute respiratory failure with hypoxia Status: Acute (4) Pneumonia Status: Acute Qualifiers: Pneumonia type: due to unspecified organism Brief History of Present Illness: 76 year old female with PMHx of HTN , HLD presents to ED with hypoxia. She sustained fall at home and was found on floor by family. EMS was called and her blood pressure was in 80s systolic , O2 sats in 70s. She was placed on NRB and was given bolus fluids. She is confused and lethargic. CXR noted for pneumonia , COVID negative , lactic acid 3 , creatinine 2.43, hgb 9.0. Hospital Course: Patient admitted to the medical floor and started on antibiotics for pneumonia and UTI. She was also hydrated with normal saline. Her blood pressure improved. Urine culture and blood cultures yielded no growth. Patient was seen by nephrology for acute renal failure. The SHAHRAM did not respond to IV hydration. Also noted patient has hypoalbuminemia of unknown significance. She remained confused. Patient was subsequently transferred to [facility] for further management. Vital Signs/Physical Exam: Temp Pulse Resp BP Pulse Ox 98.1 F 64 15 128/66 91 04/20/21 17:53 04/20/21 17:53 04/20/21 17:53 04/20/21 17:53 04/20/21 17:53 General: In no apparent distress, Confused HEENT: PERRLA, Mucous membr. moist/pink, Sclerae nonicteric Neck: Supple, JVD not distended Respiratory: Clear to auscultation bilaterally Cardiovascular: No edema, Regular rate/rhythm, Normal S1 S2 Gastrointestinal: Soft and benign, Non-distended Musculoskeletal: No swelling Integumentary: No rashes Neurological: Normal strength at 5/5 x4 extr Laboratory Data at Discharge: WBC 8.40 K/uL (4.3-10.9) D 04/20/21 04:51 Hgb 9.8 g/dL (12.0-15.0) L 04/20/21 04:51 Hct 30.5 % (36.0-45.0) L 04/20/21 04:51 Plt Count 249 K/uL (152-406) 04/20/21 04:51 PT 14.8 SECONDS (9.5-12.5) H 04/18/21 17:25 INR 1.28 04/18/21 17:25 APTT 28.3 SECONDS (24.3-36.9) 04/18/21 17:25 Sodium 135 mmol/L (136-145) L 04/20/21 04:51 Potassium 4.6 mmol/L (3.5-5.1) 04/20/21 04:51 BUN 48 mg/dL (7-18) H 04/20/21 04:51 Creatinine 2.25 mg/dL (0.55-1.3) H 04/20/21 04:51 Glucose 107 mg/dL (74-106) H 04/20/21 04:51 Phosphorus 4.9 mg/dL (2.5-4.9) 04/20/21 04:51 Magnesium 2.2 mg/dL (1.8-2.4) 04/20/21 04:51 Total Bilirubin 0.4 mg/dL (0.2-1.0) 04/20/21 04:51 AST 26 U/L (15-37) 04/20/21 04:51 ALT 16 U/L (12-78) 04/20/21 04:51 Alkaline Phosphatase 213 U/L (45-117) H 04/20/21 04:51 Triglycerides 102 mg/dL (<150) 04/19/21 02:32 Cholesterol 177 mg/dL (<200) 04/19/21 02:32 HDL Cholesterol 35 mg/dL (40-60) L 04/19/21 02:32 Cholesterol/HDL Ratio 5.06 04/19/21 02:32 Amylase 17 U/L (25-115) L 04/18/21 12:48 Lipase 57 U/L (73-393) L 04/18/21 12:48 Followup: Armand Forbes DO [Primary Care Provider] - Time spent managing pt's care (in minutes): 36
[2021-04-20] MEDS ORDERED: Levofloxacin500mg IV 500 MG/100 ML BAG IV SCH (21:00)
[2021-04-20] MEDS ORDERED: METHYLPREDNISOLONE 125 MG INJ ONE (21:26)
[2021-04-20] MEDS ORDERED: VANCOMYCIN 1 GM/VIAL ONE (21:26)
[2021-04-20] MEDS ORDERED: Levofloxacin500mg IV 500 MG/100 ML BAG IV ONE (21:26)
[2021-04-20] MEDS ORDERED: POTASSIUM 25 MEQ EFFERV TAB ONE (23:46)
[2021-04-20] MEDS ORDERED: MORPHINE 4 MG/ML SYR ONE (23:46)
[2021-04-21] MEDS: METHYLPREDNISOLONE 40 MG INJ IV SCH (01:00)
[2021-04-21 04:22] VITALS: TEMP 98
[2021-04-21 04:31] VITALS: BP 137/67
[2021-04-21] MEDS ORDERED: WATER FOR INJ,STERILE 10 ML ONE (04:34)
[2021-04-21] MEDS ORDERED: ZIPRASIDONE MESYLA 20 MG/VIAL IM ONE (04:34)
== END 2021-04-21 04:30 | disposition short-term general hospital (02) | DRG 871 ==
LOC: ER 12:21 → ERHOLD 17:06
PROVIDERS: ATTEND Hospitalist
DX: A41.9 Sepsis, unspecified organism (principal); R65.21 Severe sepsis with septic shock; J96.01 Acute respiratory failure with hypoxia; J15.9 Unspecified bacterial pneumonia; G93.41 Metabolic encephalopathy; I50.31 Acute diastolic (congestive) heart failure; N17.9 Acute kidney failure, unspecified; E87.4 Mixed disorder of acid-base balance; Z68.42 Body mass index [BMI] 45.0-49.9, adult; I13.0 Hypertensive heart and chronic kidney disease with heart failure and stage 1 through stage 4 chronic kidney disease, or unspecified chronic kidney disease; N30.00 Acute cystitis without hematuria; I27.20 Pulmonary hypertension, unspecified; D64.9 Anemia, unspecified; E66.01 Morbid (severe) obesity due to excess calories; E88.09 Other disorders of plasma-protein metabolism, not elsewhere classified; N18.30 Chronic kidney disease, stage 3 unspecified; Z20.822 Contact with and (suspected) exposure to COVID-19
CPT/HCPCS: 36415; 51702; 70450; 71045; 71250; 72125; 76770; 80048; 80053; 80061; 80076; 80202; 81003; 81015; 82150; 82533; 82550; 82553; 82565; 82570; 82728; 82805; 83605; 83690; 83735; 84100; 84145; 84156; 84300; 84484; 85025; 85379; 85384; 85610; 85730; 86140; 87040; 87086; 87088; 87804; 88108; 93005; 93306; 93970; 94660; 94760; 96361; 96365; 96368; 96372; 99285; J0456; J0696; J1650; J2920; J2930; J3370; J3486; J7030; J7040; J7050; U0003